=== PATIENT | female | born 1950 | race Caucasian/White ===

== ENCOUNTER 2016-12-14 09:56 | Outpatient (CLI) | payer OTHER ==
[2016-12-14 11:11] LABS: CHOL/HDL RATIO 3.1 (<4.4); CHOLESTEROL 184 mg/dL; HDL CHOLESTEROL 59 mg/dL; LDL/HDL RATIO 1.7 (<4.4); TRIGLYCERIDES 116 mg/dL; VLDL CHOLESTEROL 23 mg/dL
[2016-12-14 11:16] LABS: HEMOGLOBIN A1C 0.6 g/dL
== END 2016-12-14 09:57 | disposition home or self-care (01) ==
LOC: LAB 09:56
PROVIDERS: ATTEND Nurse Practitioner Primary Care
DX: E88.81 Metabolic syndrome and other insulin resistance (principal); Z13.9 Encounter for screening, unspecified; E78.5 Hyperlipidemia, unspecified
CPT/HCPCS: 36415; 80061; 83036; 84443

== ENCOUNTER 2017-02-09 10:04 | Outpatient (CLI) | payer OTHER ==
--- NOTE | 2017-02-10 15:27 | DEXA Report ---
DEXA SCAN: 02/09/2017 CLINICAL INDICATION: Postmenopausal. TECHNIQUE: Dual energy x-ray absorptiometry (DXA) was performed on a [employer] system. Regions measured are the AP spine, femoral neck, and, if needed, forearm. COMPARISON: None. In accordance with the International Society for Clinical Densitometry (ISCD) guidelines, data from previous exams may be reanalyzed using current recommendations and techniques. This is done to allow a more accurate basis for comparison with the current study. FINDINGS The data for the lumbar spine is as follows: REGION BMD (g/cm/cm) T-SCORE Z-SCORE L1 1.034 -0.8 0.3 L2 1.160 -0.3 0.8 L3 1.329 1.1 2.2 L4 1.202 0.0 1.2 TOTAL 1.188 0.1 1.2 NOTE: All evaluable vertebrae are used for classification. The data for the hip is as follows: REGION BMD (g/cm/cm) T-SCORE Z-SCORE Neck 0.890 -1.1 0.1 TOTAL 1.006 0.0 0.9 NOTE: The femoral neck or total proximal femur, whichever is lowest, is used for classification. IMPRESSION: THE WHO CLASSIFICATION BASED ON THE INTERNATIONAL REFERENCE STANDARD IS OSTEOPENIA (REFERENCE LEFT FEMORAL NECK). THE FRACTURE RISK IS INCREASED. RECOMMENDATION: Patients with diagnosis of osteoporosis or osteopenia should have regular bone mineral density assessment. For those eligible for Medicare, routine testing is allowed once every 2 years. Testing frequency can be increased for patients who have rapidly progressing disease or for those who are receiving medical therapy to restore bone mass. COMMENT: World Health Organization (WHO) definitions for osteoporosis and osteopenia: NORMAL BMD: T-score at -1.0 or higher, fracture risk is low. OSTEOPENIA BMD: T-score between -1.0 and -2.5, fracture risk is increased. OSTEOPOROSIS BMD: T-score at -2.5 or lower, fracture risk high. National Osteoporosis Foundation recommends: 1. Obtain adequate dietary calcium (at least 1200 mg per day) and vitamin D (400 -800 international units per day). 2. Participate, as appropriate, in regular weightbearing and muscle- strengthening exercise. 3. Avoid tobacco use and reduce alcohol and caffeine intake. 4. For more detailed information see the website at www.NOF.org. MTDD
== END 2017-02-09 10:05 | disposition home or self-care (01) ==
LOC: DI 10:04
PROVIDERS: ATTEND Nurse Practitioner Primary Care
DX: M85.88 Other specified disorders of bone density and structure, other site (principal); D05.12 Intraductal carcinoma in situ of left breast
CPT/HCPCS: 77066; 77080

== ENCOUNTER 2017-02-09 10:05 | Outpatient (CLI) | payer OTHER ==
--- NOTE | 2017-02-09 15:34 | Mammography Report ---
DIGITAL DIAGNOSTIC BILATERAL MAMMOGRAM: 02/09/2017 CLINICAL INDICATION: A 66-year-old with personal history of left breast cancer status post lumpectom y and chemoradiation. TECHNIQUE: Bilateral CC, laterally exaggerated CC, MLO views, left true lateral view. COMPARISON: 11/19/2015, 04/09/2015, 09/01/2014, 02/06/2014, 12/24/2013, 12/03/2013, 10/21/2013, 12/2013, 10/02/2013, 08/10/2009. FINDINGS: The breasts again demonstrate heterogeneously dense fibroglandular parenchyma bilaterally. Postoperative and post-treatment changes in the left lower inner posterior breast are stable. Jay gn biopsy changes in the right upper outer quadrant are stable. A few coarse, typically benign calci fications are present. No suspicious masses, clustered microcalcifications, or regions of architectu ral distortion are identified. IMPRESSION: BENIGN FINDINGS. RECOMMENDATION: Routine annual mammography unless otherwise clinically indicated. BI-RADS category 2, benign findings. STANDARD QUALIFYING STATEMENTS 1. This examination was reviewed with the aid of Computer-Aided Detection (CAD). 2. A negative or benign imaging report should not delay biopsy if clinically suspicious findings are present. Consider surgical consultation if warranted. More than 5% of cancers are not identified by i maging. 3. Dense breasts may obscure an underlying neoplasm. JOB #: [id number] EXT JOB #:[id number]
== END 2017-02-09 10:06 | disposition home or self-care (01) ==
LOC: DI 10:05
PROVIDERS: ATTEND Nurse Practitioner Primary Care
DX: D05.12 Intraductal carcinoma in situ of left breast (principal)
CPT/HCPCS: 77066

== ENCOUNTER 2018-02-21 10:24 | Outpatient (CLI) | payer MEDICARE ==
[2018-02-21 10:49] LABS: BASOPHILS # (AUTO) 0.1 10^3/uL (0.0-0.1); BASOPHILS % (AUTO) 0.8 %; EOSINOPHILS # (AUTO) 0.3 10^3/uL (0.0-0.7); EOSINOPHILS % (AUTO) 4.9 %; HGB - HEMOGLOBIN 13.7 g/dL (12.0-16.0); LYMPHOCYTES % (AUTO) 28.7 %; MEAN CORPUSCULAR HEMOGLOBIN 31.4 pg (27.0-31.0); MEAN CORPUSCULAR HGB CONC 34.7 g/dL (32.0-36.0); MEAN CORPUSCULAR VOLUME 90.6 fL (81.0-99.0); MEAN PLATELET VOLUME 6.6 fL (7.9-10.8); MONOCYTES # (AUTO) 0.4 10^3/uL (0.0-1.0); MONOCYTES % (AUTO) 5.2 %; NEUTROPHILS # (AUTO) 4.2 10^3/uL (1.5-6.6); NEUTROPHILS % (AUTO) 60.4 %; PLT - PLATELET COUNT 260 10^3/uL (130-450); RED BLOOD COUNT 4.35 10^6/uL (4.20-5.40); RED CELL DISTRIBUTION WIDTH 13.1 % (12.0-15.0)
[2018-02-21 11:03] LABS: ALBUMIN 4.4 g/dL (3.2-5.5); ALBUMIN/GLOBULIN RATIO 1.7 (1.0-2.2); ALKALINE PHOSPHATASE 74 IU/L (42-121); ALT ALANINE AMINOTRANSFERASE 18 IU/L (10-60); AST ASPARTATE AMINOTRANSFERASE 19 IU/L (10-42); BILIRUBIN,TOTAL 0.9 mg/dL (0.2-1.0); BUN - BLOOD UREA NITROGEN 11 mg/dL (6-20); CALCIUM 8.9 mg/dL (8.5-10.3); CARBON DIOXIDE - CO2 30 mmol/L (21-32); CHLORIDE 104 mmol/L (101-111); CHOL/HDL RATIO 2.9 (<4.4); CHOLESTEROL 159 mg/dL; CREATININE 0.6 mg/dL (0.4-1.0); GFR - MDRD 100 (>89); GLUCOSE 108 mg/dL (70-100); HDL CHOLESTEROL 55 mg/dL; LDL CHOLESTEROL,CALCULATED 82 mg/dL; LDL/HDL RATIO 1.5 (<4.4); SODIUM 141 mmol/L (135-145); VLDL CHOLESTEROL 22 mg/dL
[2018-02-21 11:14] LABS: HB2 TOTAL 14.4 g/dL; HEMOGLOBIN A1C 0.53 g/dL; HEMOGLOBIN A1C % 5.5 % (4.6-6.2)
== END 2018-02-21 10:25 | disposition home or self-care (01) ==
LOC: LAB 10:24
PROVIDERS: ATTEND Nurse Practitioner Primary Care
DX: E88.81 Metabolic syndrome and other insulin resistance (principal); Z79.899 Other long term (current) drug therapy; D05.12 Intraductal carcinoma in situ of left breast; E78.5 Hyperlipidemia, unspecified
CPT/HCPCS: 36415; 80053; 80061; 83036; 83721; 85025

== ENCOUNTER 2018-03-15 13:52 | Outpatient (CLI) | payer MEDICARE ==
--- NOTE | 2018-03-15 15:18 | Mammography Report ---
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 Post lumpectomy surveillance protocol left breast, screening right breast. TECHNIQUE: Bilateral CC and MLO views were obtained. COMPARISON: 02/09/2017 through 10/02/2013 FINDINGS: The breasts demonstrate heterogeneously dense fibroglandular parenchyma bilaterally. Left breast: There are stable post lumpectomy changes from the posterior lower inner breast with associated fat necrosis. There is a stable oval, circumscribed mass in the central breast, also evident on comparison mammograms. No suspicious masses, calcifications or areas of distortion. Right breast: Stable biopsy marker is noted in the upper outer quadrant. There are no suspicious masses, calcifications or areas of distortion. IMPRESSION: Benign findings RECOMMENDATION: Routine annual screening unless otherwise clinically indicated. BI-RADS CATEGORY 2: Benign findings STANDARD QUALIFYING STATEMENTS: 1. This examination was not reviewed with the aid of Computer-Aided Detection (CAD). 2. A negative or benign imaging report should not preclude biopsy if clinically suspicious findings are present. 3. Dense breasts may obscure an underlying neoplasm. 4. This examination was reviewed with the aid of 3D breast imaging (tomosynthesis).
== END 2018-03-15 13:53 | disposition home or self-care (01) ==
LOC: DI 13:52
PROVIDERS: ATTEND Internal Medicine
DX: C50.912 Malignant neoplasm of unspecified site of left female breast (principal)
CPT/HCPCS: 77066

== ENCOUNTER 2019-05-13 12:12 | Outpatient (CLI) | payer MEDICARE ==
--- NOTE | 2019-05-13 13:48 | Mammography Report ---
Reason: LT BREAST CA Procedure Date: 05/13/2019 Accession Number: [id number] / [id number] Procedure: JERRY - Diagnostic Dig Bilat CPT Code: Final Report FULL RESULT: EXAM: Diagnostic Dig Bilat DATE: 05/13/2019 1:30 PM CLINICAL HISTORY: Personal history of breast cancer status post left lumpectomy. History of late childbearing. TECHNIQUE: (B) - Bilateral CC and MLO views were obtained. Spot MLO images are obtained bilaterally. COMPARISON: 03/15/2018 through 08/10/2009. PARENCHYMAL PATTERN: (D) - The breast(s) demonstrate(s) heterogeneously dense fibroglandular parenchyma. FINDINGS: The lumpectomy site in the left breast demonstrates continued evolution of postsurgical changes including coarse typically benign calcifications and persistence of probably benign soft tissue prominence which has not increased. A biopsy marker is seen in the right breast. There are no suspicious masses, calcifications, or areas of distortion. IMPRESSION: Probably Benign. BI-RADS category 3. RECOMMENDATION: (6MOS) - Recommend 6 month follow-up exam. Spot views of the left breast, possibly with ultrasound. BI-RADS CATEGORY: (3) - Probably Benign. STANDARD QUALIFYING STATEMENTS: 1. This examination was not reviewed with the aid of Computer-Aided Detection (CAD). 2. A negative or benign imaging report should not preclude biopsy if clinically suspicious findings are present. 3. Dense breasts may obscure an underlying neoplasm. 4. This examination was reviewed with the aid of 3D breast imaging (tomosynthesis).
== END 2019-05-13 12:13 | disposition home or self-care (01) ==
LOC: DI 12:12
PROVIDERS: ATTEND Internal Medicine
DX: C50.912 Malignant neoplasm of unspecified site of left female breast (principal)
CPT/HCPCS: 77066

== ENCOUNTER 2019-05-23 09:40 | Outpatient (CLI) | payer MEDICARE ==
[2019-05-23 10:31] LABS: CHOL/HDL RATIO 4.5 (<4.4); CHOLESTEROL 161 mg/dL; HDL CHOLESTEROL 36 mg/dL; LDL CHOLESTEROL,CALCULATED 84 mg/dL; LDL/HDL RATIO 2.3 (<4.4); VLDL CHOLESTEROL 41 mg/dL
[2019-05-23 10:42] LABS: HB2 TOTAL 13.4 g/dL; HEMOGLOBIN A1C 0.57 g/dL
== END 2019-05-23 09:41 | disposition home or self-care (01) ==
LOC: LAB 09:40
PROVIDERS: ATTEND Nurse Practitioner
DX: Z00.00 Encounter for general adult medical examination without abnormal findings (principal); Z79.899 Other long term (current) drug therapy; E88.81 Metabolic syndrome and other insulin resistance; E78.5 Hyperlipidemia, unspecified
CPT/HCPCS: 80061; 83036; 83721; 84443

== ENCOUNTER 2019-05-24 09:31 | Outpatient (CLI) | payer MEDICARE ==
--- NOTE | 2019-05-24 10:45 | XRAY Report ---
Reason: COUGH Procedure Date: 05/24/2019 Accession Number: [id number] / [id number] Procedure: XR - Chest 2 View X-Ray CPT Code: 85512 Final Report FULL RESULT: EXAM: CHEST RADIOGRAPHY EXAM DATE: 05/24/2019 09:41 AM. CLINICAL HISTORY: Nonproductive cough for 10 days. COMPARISON: None. TECHNIQUE: 2 views. FINDINGS: Lungs/Pleura: No focal opacities evident. No pleural effusion. No pneumothorax. Normal volumes. Mediastinum: Heart and mediastinal contours are unremarkable. Other: None. IMPRESSION: Normal 2-view chest radiography. RADIA
== END 2019-05-24 09:32 | disposition home or self-care (01) ==
LOC: DI 09:31
PROVIDERS: ATTEND Nurse Practitioner
DX: R05 Cough (principal)
CPT/HCPCS: 71046

== ENCOUNTER 2019-12-18 10:08 | Outpatient (CLI) | payer MEDICARE ==
--- NOTE | 2019-12-18 12:28 | DEXA Report ---
PROCEDURE: Dexa Spine and/or Hip INDICATIONS: POST MENOPAUSAL TECHNIQUE: Dual energy x-ray absorptiometry (DXA) was performed on a [employer] System. Regions measur ed are the AP Spine, femoral neck, and if needed forearm. COMPARISON: Prior bone densitometry performed 02/09/2017 reviewed, same modality.. FINDINGS: Lumbar Spine: Bone Mineral Density 1.160 g/cm/cm,T score -0.2, normal but with a significant reduction in overal l bone mineral density by 2.4% from the comparison. Left Hip: Bone Mineral Density 0.992 g/cm/cm,T score -0.1, normal Left Femoral Neck: Bone Mineral Density 0.844 g/cm/cm, T score -1.4, osteopenia (T score greater or equal to -1.0: NORMAL) (T score from -1.1 to -2.4: OSTEOPENIA) (T score less than or equal to -2.5 to: OSTEOPOROSIS) Impression: Osteopenia at the left femoral neck, normal bone mineral density of the left hip and lumb osacral spine overall. Please note that there was a 2.4% reduction in overall bone mineral density of the lumbosacral spine with reference to the prior study from 2017. This represents a statistically s ignificant reduction in density. Patients with diagnosis of osteoporosis or osteopenia should have regular bone mineral density assess ment. For those eligible for Medicare, routine testing is allowed once every 2 years. Testing frequ ency can be increased for patients who have rapidly progressing disease or for those who are receivin g medical therapy to restore bone mass. Reviewed by: Brent Hinojosa MD on 12/18/2019 12:26 PM PDT Approved by: Brent Hinojosa MD on 12/18/2019 12:26 PM PDT Station ID: [id number]
== END 2019-12-18 10:09 | disposition home or self-care (01) ==
LOC: DI 10:08
PROVIDERS: ATTEND Internal Medicine
DX: M85.88 Other specified disorders of bone density and structure, other site (principal)
CPT/HCPCS: 77080

== ENCOUNTER 2020-05-04 11:04 | Outpatient (CLI) | payer MEDICARE ==
[2020-05-04 11:27] LABS: BASOPHILS # (AUTO) 0.1 10^3/uL (0.0-0.1); BASOPHILS % (AUTO) 0.6 %; EOSINOPHILS # (AUTO) 0.3 10^3/uL (0.0-0.7); EOSINOPHILS % (AUTO) 3.5 %; HGB - HEMOGLOBIN 14.4 g/dL (12.0-16.0); LYMPHOCYTES # (AUTO) 2.3 10^3/uL (1.5-3.5); MEAN CORPUSCULAR HEMOGLOBIN 30.9 pg (27.0-31.0); MEAN CORPUSCULAR HGB CONC 33.2 g/dL (32.0-36.0); MEAN CORPUSCULAR VOLUME 93.1 fL (81.0-99.0); MEAN PLATELET VOLUME 8.5 fL (7.9-10.8); MONOCYTES # (AUTO) 0.4 10^3/uL (0.0-1.0); MONOCYTES % (AUTO) 5.1 %; NEUTROPHILS # (AUTO) 5.4 10^3/uL (1.5-6.6); NEUTROPHILS % (AUTO) 63.4 %; PLT - PLATELET COUNT 259 10^3/uL (130-450); RED BLOOD COUNT 4.66 10^6/uL (4.20-5.40); RED CELL DISTRIBUTION WIDTH 12.8 % (12.0-15.0); WHITE BLOOD COUNT 8.5 x10^3/uL (4.8-10.8)
[2020-05-04 11:43] LABS: ALBUMIN 4.6 g/dL (3.2-5.5); ALBUMIN/GLOBULIN RATIO 1.5 (1.0-2.2); ALKALINE PHOSPHATASE 85 IU/L (42-121); ALT ALANINE AMINOTRANSFERASE 23 IU/L (10-60); AST ASPARTATE AMINOTRANSFERASE 20 IU/L (10-42); BILIRUBIN,TOTAL 0.7 mg/dL (0.2-1.0); BUN - BLOOD UREA NITROGEN 9 mg/dL (6-20); CALCIUM 9.1 mg/dL (8.5-10.3); CARBON DIOXIDE - CO2 29 mmol/L (21-32); CHLORIDE 99 mmol/L (101-111); CHOL/HDL RATIO 3.5 (<4.4); CHOLESTEROL 215 mg/dL; CREATININE 0.7 mg/dL (0.4-1.0); GLUCOSE 112 mg/dL (70-100); HDL CHOLESTEROL 62 mg/dL; LDL CHOLESTEROL,CALCULATED 119 mg/dL; LDL/HDL RATIO 1.9 (<4.4); SODIUM 142 mmol/L (135-145); TOTAL PROTEIN 7.6 g/dL (6.7-8.2); VLDL CHOLESTEROL 34 mg/dL
[2020-05-04 13:28] LABS: HEMOGLOBIN A1c% 5.6 % (4.27-6.07)
== END 2020-05-04 11:05 | disposition home or self-care (01) ==
LOC: LAB 11:04
PROVIDERS: ATTEND Nurse Practitioner
DX: Z00.00 Encounter for general adult medical examination without abnormal findings (principal); E78.5 Hyperlipidemia, unspecified; Z79.899 Other long term (current) drug therapy; E88.81 Metabolic syndrome and other insulin resistance
CPT/HCPCS: 36415; 80053; 80061; 83036; 83721; 84443; 85025

== ENCOUNTER 2020-11-26 10:27 | Outpatient (CLI) | payer MEDICARE ==
--- NOTE | 2020-11-27 10:49 | Ultrasound Report ---
LIMITED ULTRASOUND OF LEFT BREAST: 11/26/2020 CLINICAL: Palpable left breast lump. Comparison is made to exams dated: 11/26/2020 mammogram, 05/13/2019 mammogram, 03/15/2018 mammogram, 1 mammogram, 11/19/2015 mammogram, and 04/09/2015 mammogram - [facility]. Color flow and real-time ultrasound of the left breast 8 o'clock region were performed on the areas of interest. Srinivasan scale images of the real-time examination were reviewed. There is an oval mass in the left breast at 8 o'clock posterior depth 7 cm from the nipple. This ova l mass is hypoechoic with posterior acoustic shadowing. This correlates as palpated and with mammogr aphy findings. There are rim calcifications as seen mammographically. Color flow imaging demonstrat es that there is no vascularity present. IMPRESSION: BENIGN There is no sonographic evidence of malignancy. The peripherally calcified oval mass in the left breast is consistent with fat necrosis and is benign . A 1 year screening mammogram is recommended. This exam was interpreted at Station ID: [id number]. Electronically Signed By: Jah Arango M.D. ddp/:11/26/2020 12:47:24 Ultrasound BI-RADS: 2 Benign BI-RADS CATEGORY: (2) - 2 RECOMMENDATION: (ANNUAL) - Recommend routine annual screening mammography. [id number] 1 year screening LATERALITY: (B)
--- NOTE | 2020-11-27 10:49 | Mammography Report ---
BILATERAL DIGITAL DIAGNOSTIC MAMMOGRAM 3D/2D: 11/26/2020 CLINICAL: Short term follow up of the left breast, due for bilateral imaging. Comparison is made to exams dated: 05/13/2019 mammogram, 03/15/2018 mammogram, 02/09/2017 mammogram, 11/19/2015 mammogram, 04/09/2015 mammogram, and 10/15/2014 breast MRI - [facility]. The tissue of both breasts is heterogeneously dense. This may lower the sensitivity of mammography. There is an oval fat containing fat necrosis with an indistinct margin and coarse dystrophic calcific ations in the left breast at 9 o'clock posterior depth. There is a post-surgical scar associated wit h the fat necrosis. No other significant masses, calcifications, or other findings are seen in either breast. IMPRESSION: INCOMPLETE: NEEDS ADDITIONAL IMAGING EVALUATION The oval fat containing fat necrosis in the left breast is consistent with a previous surgery and is benign. There is no abnormality seen in the left breast to correspond with the palpable abnormality in the lo wer inner quadrant, however, ultrasound is recommended. Ultrasound will be performed immediately following the current exam. This exam was interpreted at Station ID: [id number]. NOTE: For mammograms, a report in lay terms will be sent to the patient. Approximately 15% of breast malignancies will not be visualized mammographically. In the management of a palpable breast mass, a negative mammogram must not discourage biopsy of a clinically suspicious lesion. Electronically Signed By: Jah Arango M.D. ddp/:11/26/2020 11:42:28 ACR BI-RADS Category 0: Incomplete 3340F PARENCHYMAL PATTERN: (D) - The breast(s) demonstrate(s) heterogeneously dense fibroglandular reno ashley. BI-RADS CATEGORY: (0) - 0 Ultrasound [id number] Immediate follow-up LATERALITY: (B)
== END 2020-11-26 10:28 | disposition home or self-care (01) ==
LOC: DI 10:27
PROVIDERS: ATTEND Internal Medicine
DX: D24.2 Benign neoplasm of left breast (principal)

== ENCOUNTER 2022-04-07 10:43 | Outpatient (CLI) | payer MEDICARE ==
[2022-04-07 11:05] LABS: BASOPHILS # (AUTO) 0.1 10^3/uL (0.0-0.1); BASOPHILS % (AUTO) 0.5 %; EOSINOPHILS # (AUTO) 0.4 10^3/uL (0.0-0.7); EOSINOPHILS % (AUTO) 3.3 %; HCT - HEMATOCRIT 42.2 % (37.0-47.0); HGB - HEMOGLOBIN 13.8 g/dL (12.0-16.0); LYMPHOCYTES # (AUTO) 1.7 10^3/uL (1.5-3.5); LYMPHOCYTES % (AUTO) 15.2 %; MEAN CORPUSCULAR HEMOGLOBIN 31.2 pg (27.0-31.0); MEAN CORPUSCULAR HGB CONC 32.7 g/dL (32.0-36.0); MEAN CORPUSCULAR VOLUME 95.3 fL (81.0-99.0); MEAN PLATELET VOLUME 8.4 fL (7.9-10.8); MONOCYTES # (AUTO) 0.4 10^3/uL (0.0-1.0); MONOCYTES % (AUTO) 3.4 %; NEUTROPHILS # (AUTO) 8.5 10^3/uL (1.5-6.6); NEUTROPHILS % (AUTO) 77.4 %; PLT - PLATELET COUNT 263 10^3/uL (130-450); RED BLOOD COUNT 4.43 10^6/uL (4.20-5.40); RED CELL DISTRIBUTION WIDTH 12.6 % (12.0-15.0); WHITE BLOOD COUNT 10.9 x10^3/uL (4.8-10.8)
[2022-04-07 11:29] LABS: ALBUMIN 4.4 g/dL (3.2-5.5); ALBUMIN/GLOBULIN RATIO 1.6 (1.0-2.2); ALKALINE PHOSPHATASE 68 IU/L (42-121); ALT ALANINE AMINOTRANSFERASE 20 IU/L (10-60); AST ASPARTATE AMINOTRANSFERASE 21 IU/L (10-42); BILIRUBIN,TOTAL 0.9 mg/dL (0.2-1.0); BUN - BLOOD UREA NITROGEN 10 mg/dL (6-20); CALCIUM 8.9 mg/dL (8.5-10.3); CARBON DIOXIDE - CO2 30 mmol/L (21-32); CHLORIDE 100 mmol/L (101-111); CHOL/HDL RATIO 3.6 (<4.4); CHOLESTEROL 185 mg/dL; CREATININE 0.6 mg/dL (0.4-1.0); GFR - MDRD 99 (>89); GLUCOSE 107 mg/dL (70-100); HDL CHOLESTEROL 51 mg/dL; LDL CHOLESTEROL,CALCULATED 90 mg/dL; LDL/HDL RATIO 1.8 (<4.4); POTASSIUM 3.8 mmol/L (3.5-5.0); SODIUM 139 mmol/L (135-145); TOTAL PROTEIN 7.1 g/dL (6.7-8.2); TRIGLYCERIDES 221 mg/dL; VLDL CHOLESTEROL 44 mg/dL
[2022-04-07 11:37] LABS: THYROID STIMULATING HORMONE 2.98 uIU/mL (0.34-5.60)
[2022-04-07 11:47] LABS: ESTIMATED AVERAGE GLUCOSE 120 mg/dL (70-100); HEMOGLOBIN A1c% 5.8 % (4.27-6.07)
--- NOTE | 2022-04-07 14:37 | XRAY Report ---
PROCEDURE: Chest 2 View X-Ray INDICATIONS: CHRONIC COUGH TECHNIQUE: 2 views of the chest were acquired. COMPARISON: Chest radiograph 05/24/2019 FINDINGS: Surgical changes and devices: None. Lungs and pleura: No pleural effusions or pneumothorax. Lungs are clear. Mediastinum: Cardiac silhouette is mildly enlarged. Mediastinal and hilar contours are similar to bef ore. No definite pulmonary vascular congestion. Bones and chest wall: No suspicious bony abnormalities. Soft tissues appear unremarkable. IMPRESSION: 1. No acute cardiopulmonary abnormality. 2. Mild enlargement of the cardiac silhouette without definite pulmonary vascular congestion present at this time. Reviewed by: Samuel Nguyen MD on 04/07/2022 2:36 PM PST Approved by: Samuel Nguyen MD on 04/07/2022 2:36 PM [facility] Station ID: [id number]
== END 2022-04-07 10:44 | disposition home or self-care (01) ==
LOC: DI 10:43
PROVIDERS: ATTEND Physician Assistant
DX: R05.3 Chronic cough (principal); E78.5 Hyperlipidemia, unspecified; Z79.899 Other long term (current) drug therapy; Z13.9 Encounter for screening, unspecified; E88.81 Metabolic syndrome and other insulin resistance; Z13.29 Encounter for screening for other suspected endocrine disorder; I51.7 Cardiomegaly
CPT/HCPCS: 36415; 80053; 80061; 82306; 83036; 83721; 84443; 85025

== ENCOUNTER 2022-10-05 13:02 | Outpatient (CLI) | payer MEDICARE ==
--- NOTE | 2022-10-06 09:19 | Mammography Report ---
BILATERAL DIGITAL SCREENING MAMMOGRAM 3D/2D: 10/05/2022 CLINICAL: Routine screening. Personal history of left breast cancer. Comparison is made to exams dated: 11/04/2021 mammogram - [facility], 11/26/2020 mammogram, 0 mammogram, 03/15/2018 mammogram, 02/09/2017 mammogram, and 11/19/2015 mammogram - [facility]. Both breasts are heterogeneously dense, which may obscure small masses (category c / 51-75% glandular tissue). There are benign calcifications in both breasts. There also is a biopsy clip in the right breast. No significant masses, calcifications, or other findings are seen in either breast. There has been no significant interval change. IMPRESSION: BENIGN There is no mammographic evidence of malignancy. A 1 year screening mammogram is recommended. This exam was interpreted at Station ID: [id number]. NOTE: For mammograms, a report in lay terms will be sent to the patient. Approximately 15% of breast malignancies will not be visualized mammographically. In the management of a palpable breast mass, a negative mammogram must not discourage biopsy of a clinically suspicious lesion. Electronically Signed By: Papito Bustillo M.D. aty/valerie:10/05/2022 14:05:26 letter sent: No_Letter ACR BI-RADS Category 2: Benign Finding(s) 3342F PARENCHYMAL PATTERN: (D) - The breast(s) demonstrate(s) heterogeneously dense fibroglandular reno ashley. BI-RADS CATEGORY: (2) - 2 Mammogram [id number] 1 year screening LATERALITY: (B)
== END 2022-10-05 13:03 | disposition home or self-care (01) ==
LOC: DI 13:02
PROVIDERS: ATTEND Internal Medicine
DX: Z12.31 Encounter for screening mammogram for malignant neoplasm of breast (principal); Z85.3 Personal history of malignant neoplasm of breast

== ENCOUNTER 2022-10-24 08:00 | Outpatient (CLI) | payer MEDICARE ==
[2022-10-24 20:47] LABS: BACTERIAL VAGINOSIS DNA QNS (NEGATIVE); CANDIDA GLABRATA DNA QNS (NEGATIVE); CANDIDA GROUP DNA QNS (NEGATIVE); CANDIDA KRUSEI DNA QNS (NEGATIVE); TRICHOMONAS VAGINALIS DNA QNS (NEGATIVE)
== END 2022-10-24 23:59 | disposition home or self-care (01) ==
LOC: LAB.N 08:00
PROVIDERS: ATTEND Nurse Practitioner
DX: R30.0 Dysuria (principal)
CPT/HCPCS: 81514

== ENCOUNTER 2022-10-26 08:00 | Outpatient (CLI) | payer MEDICARE ==
[2022-10-26 20:06] LABS: BACTERIAL VAGINOSIS DNA NEGATIVE (NEGATIVE); CANDIDA GLABRATA DNA NEGATIVE (NEGATIVE); CANDIDA GROUP DNA NEGATIVE (NEGATIVE); CANDIDA KRUSEI DNA NEGATIVE (NEGATIVE); TRICHOMONAS VAGINALIS DNA NEGATIVE (NEGATIVE)
== END 2022-10-26 23:59 | disposition home or self-care (01) ==
LOC: LAB.N 08:00
PROVIDERS: ATTEND Nurse Practitioner
DX: R30.0 Dysuria (principal)
CPT/HCPCS: 81514

== ENCOUNTER 2022-11-02 15:55 | Outpatient (CLI) | payer MEDICARE ==
--- NOTE | 2022-11-03 16:15 | Ultrasound Report ---
PROCEDURE: Pelvic w/Transvaginal INDICATIONS: VAGINAL BLEEDING TECHNIQUE: Real-time scanning was performed of the pelvic organs, with image documentation. Additional endovagi nal scanning was necessary due to incomplete visualization of the adnexal and endometrial structures by transabdominal scanning. COMPARISON: None. FINDINGS: Uterus: Uterus is anteverted and normal in size at 4.2 x 2.5 x 3.5 cm. The myometrium is homogeneou s. The endometrium measures 2 mm in combined thickness. Ovaries: The right ovary measures 2.5 x 2.5 x 2.0 cm, with a calculated ovarian volume of 6.9 cc. T he left ovary measures 5.0 x 2.6 x 3.2 cm, with a calculated ovarian volume of 30.6 cc. Bilateral foc i of decreased echogenicity are present within the ovaries measuring 1.7 x 1.9 x 1.5 cm and 3.1 x 4.4 x 2.5 cm in the right and left respectively. Other: No pathologic free abdominal or pelvic fluid. IMPRESSION: Bilateral simple appearing ovarian cyst. However, given patient age, short interval imaging follow-up is recommended as cystic malignancy cannot be definitively excluded. Endometrium is within normal thickness. Reviewed by: Nette Schmidt MD on 11/03/2022 4:14 PM PDT Approved by: Nette Schmidt MD on 11/03/2022 4:14 PM PDT Station ID: [id number]
== END 2022-11-02 15:56 | disposition home or self-care (01) ==
LOC: DI 15:55
PROVIDERS: ATTEND Nurse Practitioner
DX: N93.9 Abnormal uterine and vaginal bleeding, unspecified (principal); N95.2 Postmenopausal atrophic vaginitis; N83.292 Other ovarian cyst, left side; N83.291 Other ovarian cyst, right side

== ENCOUNTER 2023-01-10 11:41 | Outpatient (CLI) | payer MEDICARE ==
[2023-01-10 12:16] LABS: CALCIUM 9.3 mg/dL (8.5-10.3); CREATININE 0.6 mg/dL (0.6-1.3); POTASSIUM 4.1 mmol/L (3.5-4.5)
== END 2023-01-10 11:42 | disposition home or self-care (01) ==
LOC: LAB 11:41
PROVIDERS: ATTEND Physician Assistant
DX: I10 Essential (primary) hypertension (principal)
CPT/HCPCS: 36415; 80048

== ENCOUNTER 2023-01-19 10:54 | Outpatient (CLI) | payer MEDICARE | END 2023-01-19 10:55 | disposition home or self-care (01) | LOC: LAB 10:54 | PROVIDERS: ATTEND Obstetrics & Gynecology | DX: N83.292 Other ovarian cyst, left side (principal); N83.291 Other ovarian cyst, right side | CPT/HCPCS: 36415; 86304 ==

== ENCOUNTER 2023-02-03 14:47 | Outpatient (CLI) | payer MEDICARE ==
--- NOTE | 2023-02-03 16:42 | Ultrasound Report ---
PROCEDURE: Pelvic w/Transvaginal INDICATIONS: OVARIAN CYST TECHNIQUE: Real-time scanning was performed of the pelvic organs, with image documentation. Additional endovagi nal scanning was necessary due to incomplete visualization of the adnexal and endometrial structures by transabdominal scanning. COMPARISON: 11/02/2022. FINDINGS: Uterus: Uterus is anteflexed and normal in size at 4.5 x 2.4 x 3.5 cm. The myometrium is homogeneou s. The endometrium measures 3 mm in combined thickness. No endometrial mass or fluid is seen. Ovaries: The right ovary measures 9 x 1.6 x 1.9 cm, with a calculated ovarian volume of 4.46 cc. Th e left ovary measures 4.3 x 2.7 x 3.4 cm, with a calculated ovarian volume of 20.3 cc. 1.3 x 1.9 x 1. 2 cm simple appearing cyst is seen in right ovary. 2.4 x 3.3 x 2.0 cm simple appearing cyst is seen i n left ovary. Both are slightly smaller in size compared to 11/02/2022 study. Less than 12 follicles ca n be seen in each ovary. No adnexal masses are seen. No cystic lesions measuring greater than 3 cm. Other: No pathologic free abdominal or pelvic fluid. IMPRESSION: 1. Previously noted bilateral simple appearing ovarian cysts are slightly smaller in size compared to prior study. No new solid or cystic ovarian lesion is seen. 2. No endometrial mass or fluid. No discrete uterine fibroids. No pelvic free fluid. Reviewed by: Preston Bustos MD on 02/03/2023 4:40 PM PDT Approved by: Preston Bustos MD on 02/03/2023 4:40 PM PDT Station ID: [id number]
== END 2023-02-03 14:48 | disposition home or self-care (01) ==
LOC: DI 14:47
PROVIDERS: ATTEND Nurse Practitioner
DX: N83.292 Other ovarian cyst, left side (principal); N83.291 Other ovarian cyst, right side

== ENCOUNTER 2023-09-27 08:00 | Outpatient (CLI) | payer MEDICARE ==
[2023-09-27 17:54] LABS: BILIRUBIN,URINE NEGATIVE (NEGATIVE); GLUCOSE, URINE (UA) NEGATIVE (NEGATIVE); KETONES,URINE (UA) NEGATIVE (NEGATIVE); LEUKOCYTE ESTERASE, URINE SMALL (NEGATIVE); NITRITE,URINE NEGATIVE (NEGATIVE); OCCULT BLOOD,URINE TRACE-INTA (NEGATIVE); PH,URINE 6.5 PH (5.0-7.5); PROTEIN,URINE TRACE mg/dL (NEGATIVE); UROBILINOGEN,URINE 0.2 (NORMAL) E.U./dL (NORMAL)
[2023-09-27 17:56] LABS: CLARITY,URINE HAZY (CLEAR)
[2023-09-27 18:06] LABS: RBC,URINE 0-5 /HPF (0-5); SQUAMOUS EPITHELIAL CELL,UR FEW Squamous (<= Few); WBC,URINE >25 /HPF (0-5)
[2023-09-27 18:07] LABS: BACTERIA,URINE Moderate /HPF (None Seen)
== END 2023-09-27 23:59 | disposition home or self-care (01) ==
LOC: LAB.N 08:00
PROVIDERS: ATTEND Nurse Practitioner Family
DX: N39.0 Urinary tract infection, site not specified (principal)
CPT/HCPCS: 81001; 87077; 87086; 87181

== ENCOUNTER 2023-10-04 12:49 | Outpatient (CLI) | payer MEDICARE ==
--- NOTE | 2023-10-05 10:21 | Mammography Report ---
BILATERAL DIGITAL SCREENING MAMMOGRAM 3D/2D: 10/04/2023 CLINICAL: Routine screening. Personal history of left breast cancer. Comparison is made to exams dated: 10/05/2022 mammogram - [facility], 11/04/2021 mammo [facility], 11/26/2020 mammogram, 05/13/2019 mammogram, 03/15/2018 mammogram, and 02/09/2017 mammogram - [facility]. Both breasts are heterogeneously dense, which may obscure small masses (category c / 51-75% glandular tissue). There are benign calcifications in both breasts. There also is a biopsy clip in the right breast. A dditionally, there are benign post operative findings in the left breast. No significant masses, calcifications, or other findings are seen in either breast. There has been no significant interval change. IMPRESSION: BENIGN There is no mammographic evidence of malignancy. A 1 year screening mammogram is recommended. This exam was interpreted at Station ID: [id number]. NOTE: For mammograms, a report in lay terms will be sent to the patient. Approximately 15% of breast malignancies will not be visualized mammographically. In the management of a palpable breast mass, a negative mammogram must not discourage biopsy of a clinically suspicious lesion. Electronically Signed By: Wali sanders/valerie:10/04/2023 13:38:41 letter sent: No_Letter ACR BI-RADS Category 2: Benign Finding(s) 3342F PARENCHYMAL PATTERN: (D) - The breast(s) demonstrate(s) heterogeneously dense fibroglandular reno ashley. BI-RADS CATEGORY: (2) - 2 RECOMMENDATION: (ANNUAL) - Recommend routine annual screening mammography. [id number] 1 year screening LATERALITY: (B)
== END 2023-10-04 12:50 | disposition home or self-care (01) ==
LOC: DI 12:49
PROVIDERS: ATTEND Internal Medicine
DX: Z12.31 Encounter for screening mammogram for malignant neoplasm of breast (principal); R92.333 Mammographic heterogeneous density, bilateral breasts; Z85.3 Personal history of malignant neoplasm of breast